=== PATIENT | female | born 1990 | race African-American/Black ===

== ENCOUNTER 2019-03-29 06:57 | Emergency (ER) | payer MEDICARE | END 2019-03-29 07:23 | disposition home or self-care (01) | LOC: ERS 06:57 | DX: J20.9 Acute bronchitis, unspecified (principal) | CPT/HCPCS: 99283 ==

== ENCOUNTER 2021-03-14 12:10 | Emergency (ER) | payer MEDICARE, MEDICAID ==
[2021-03-14 13:29] LABS: #Basophils 0.1 thou/uL (0.0-0.2); #Monocytes 0.6 thou/uL (0.11-0.59); #Neutrophils 3.1 thou/uL (1.40-6.50); %Basophils 1.6 % (0.0-1.0); %Eosinophils 0.6 % (0.0-10.0); %Lymphocytes 35.3 % (21.0-51.0); %Monocytes 9.7 % (0.0-10.0); %Neutrophils 52.8 % (42.0-75.0); Hemoglobin 13.5 g/dL (12.0-16.0); Mean Corpuscular HGB CONC 33.9 g/dL (32.0-36.0); Mean Corpuscular Hemoglobin 32.4 pg (27.0-31.0); Mean Corpuscular Volume 95.5 fL (78.0-98.0); Mean Platelet Volume 8.1 fL (7.4-10.4); Platelet Count 226 thou/uL (130-400); RBC Distribution Width 11.4 % (11.5-14.5); Red Blood Cell (RBC) Count 4.16 mill/uL (4.20-5.40); White Blood Cell (WBC) Count 5.8 thou/uL (4.8-10.8)
[2021-03-14 14:00] LABS: ALT (SGPT) 10 U/L (8-55); AST (SGOT) 11 U/L (5-34); Alkaline Phosphatase 50 U/L (40-110); Anion Gap 12 mmol/L (10-20); BUN (Urea Nitrogen) 15 mg/dL (7.0-18.7); Bilirubin, Total 0.4 mg/dL (0.2-1.2); Calc. Creatinine Clearance 0 mL/min (70-130); Calcium 9.4 mg/dL (7.8-10.44); Carbon Dioxide 28 mmol/L (22-29); Chloride 105 mmol/L (98-107); Globulin 2.7 g/dL (2.4-3.5); Glucose 76 mg/dL (70-105); Lipase 26 U/L (8-78); Protein, Total 6.7 g/dL (6.0-8.3); Sodium 141 mmol/L (136-145)
[2021-03-14] MEDS ORDERED: Ketorolac Tromethamine 30 MG/ML VIAL ONE (14:03)
[2021-03-14] MEDS ORDERED: Acetaminophen 500 MG TAB ONE (14:12)
== END 2021-03-14 14:25 | disposition home or self-care (01) ==
LOC: ERS 12:10
DX: M25.511 Pain in right shoulder (principal); R07.89 Other chest pain; X50.3XXA Overexertion from repetitive movements, initial encounter; Y99.0 Civilian activity done for income or pay
CPT/HCPCS: 36415; 71045; 80053; 83690; 84484; 85025; 93005; J1885

== ENCOUNTER 2021-12-14 16:58 | Outpatient (CLI) | payer MEDICARE, MEDICAID | END 2021-12-14 16:59 | disposition home or self-care (01) | LOC: RAD 16:58 | PROVIDERS: ATTEND Nurse Practitioner Women's Health | DX: R04.2 Hemoptysis (principal) | CPT/HCPCS: 71046 ==

== ENCOUNTER 2022-07-12 09:21 | Emergency (ER) | payer MEDICARE, OTHER | END 2022-07-12 10:38 | disposition home or self-care (01) | LOC: ERS 09:21 | DX: M54.12 Radiculopathy, cervical region (principal); F17.210 Nicotine dependence, cigarettes, uncomplicated | CPT/HCPCS: 99283 ==

== ENCOUNTER 2022-07-21 09:04 | Emergency (ER) | payer OTHER, MEDICAID ==
[2022-07-21] MEDS ORDERED: Diazepam 5 MG TAB ONE (11:00)
[2022-07-21] MEDS ORDERED: Ketorolac Tromethamine 30 MG/ML VIAL ONE (11:00)
[2022-07-21] MEDS ORDERED: Lidocaine 1% PF 5 ML VIAL ONE (11:22)
== END 2022-07-21 11:53 | disposition home or self-care (01) ==
LOC: ERS 09:04
DX: M62.838 Other muscle spasm (principal); F17.210 Nicotine dependence, cigarettes, uncomplicated; V89.9XXA Person injured in unspecified vehicle accident, initial encounter
CPT/HCPCS: 96372; 99283; J1885

== ENCOUNTER 2023-03-28 19:15 | Emergency (ER) | payer MEDICARE, MEDICAID ==
[2023-03-28] MEDS ORDERED: Dexamethasone 10 MG/ML VIAL ONE (22:02)
== END 2023-03-28 22:26 | disposition home or self-care (01) ==
LOC: ERS 19:15
DX: J30.9 Allergic rhinitis, unspecified (principal); J32.9 Chronic sinusitis, unspecified
CPT/HCPCS: 96372; 99282; J1100

== ENCOUNTER 2024-10-31 01:47 | Emergency (ER) | payer MEDICAID, MEDICARE ==
[2024-10-31] MEDS ORDERED: Ibuprofen 200 MG TAB ONE (03:40)
== END 2024-10-31 03:45 | disposition home or self-care (01) ==
LOC: ERS 01:47
DX: B35.9 Dermatophytosis, unspecified (principal); Z55.6 Problems related to health literacy
CPT/HCPCS: 99282

== ENCOUNTER 2024-12-06 09:57 | Emergency (ER) | payer MEDICARE, OTHER | END 2024-12-06 12:47 | disposition home or self-care (01) | LOC: ERS 09:57 | DX: M62.838 Other muscle spasm (principal) | CPT/HCPCS: 93970 ==

== ENCOUNTER 2025-10-30 05:15 | Emergency (ER) | payer OTHER ==
[2025-10-30] MEDS ORDERED: Ibuprofen 800 MG TAB ONE (05:41)
[2025-10-30] MEDS ORDERED: Acetaminophen 500 MG TAB ONE (05:41)
== END 2025-10-30 07:19 | disposition home or self-care (01) ==
LOC: ERS 05:15
DX: M54.2 Cervicalgia (principal); V89.2XXA Person injured in unspecified motor-vehicle accident, traffic, initial encounter
CPT/HCPCS: 70450; 72125